=== PATIENT | female | born 1985 | race Asian ===

== ENCOUNTER → 2021-02-05 12:51 | Outpatient (CLI) | payer OTHER, SELFPAY | PROVIDERS: PCP Obstetrics & Gynecology; Referring Provider Obstetrics & Gynecology; Visit Provider Obstetrics & Gynecology | DX: O09.521 Supervision of elderly multigravida, first trimester (principal) | CPT/HCPCS: 36415; 81420 ==

== ENCOUNTER → 2021-02-21 13:54 | Outpatient (CLI) | payer OTHER, SELFPAY ==
[2021-02-21 16:17] LABS: Add Manual Diff / Slide Review NO; Basophils Absolute Auto 0 /uL (0-100); Basophils Percent Auto 0.1 % (0-2); Eosinophils Absolute Auto 0 /uL (0-450); Eosinophils Percent Auto 0.1 % (2-4); Hematocrit 36.4 % (36-46); Hemoglobin 12.3 g/dL (12.0-16.0); Lymphocytes Absolute Auto 1100 /uL (1100-4500); Lymphocytes Percent Auto 13.7 % (25-40); Mean Corpuscular HGB Conc 33.9 % (30-36); Mean Corpuscular Hemoglobin 30.6 PG (26-34); Mean Corpuscular Volume 90.5 fL (80-100); Monocytes Absolute Auto 300 /uL (0-900); Monocytes Percent Auto 3.2 % (3-14); Neutrophils Absolute Auto 6600 /uL (1500-7000); Neutrophils Percent Auto 82.9 % (50-75); Platelet Count 286 X10^3/uL (150-400); Red Blood Cell Count 4.03 X10^6/uL (4.0-5.2); Red Cell Distribution Width 13.3 % (11.6-14.8)
[2021-02-21 17:33] LABS: Appearance Urine UA CLOUDY; Bilirubin Urine UA NEGATIVE (NEGATIVE); Color Urine UA YELLOW; Glucose Urine UA TRACE g/dL (Negative); Ketones Urine UA NEGATIVE (NEGATIVE); Leukocyte Esterase Urine UA NEGATIVE (NEGATIVE); Nitrite Urine UA NEGATIVE (Negative); Occult Blood Urine UA NEGATIVE (Negative); Protein Urine UA TRACE (Negative); Specific Gravity Urine UA 1.025 (1.000-1.035); Urobilinogen Urine UA 0.2 E.U./dL (0.2)
[2021-02-22 10:29] LABS: RPR Screen Non Reactive (Non Reactive); Varicella IgG Antibody 2243 index (Immune >165)
[2021-02-22 16:24] LABS: Hepatitis B Surface Antigen NEGATIVE s/c (NEGATIVE)
[2021-02-22 16:43] LABS: HIV 1 & 2 Ab/Ag 4th Gen Combo NEGATIVE (NEGATIVE); Hep C Virus Ab w/Reflex Quant NEGATIVE s/c (NEGATIVE)
[2021-02-24 20:41] LABS: AFP Value 36.1 ng/mL (.); Gest Age on Col Date 16.4 weeks (.); Insulin Dep Diabetes No (.); OSBR Risk 1IN 10000 (.); Results Report (.); Test Results *Screen Negative* (.)
== END ==
PROVIDERS: Referring Provider Obstetrics & Gynecology; Visit Provider Obstetrics & Gynecology
DX: Z34.82 Encounter for supervision of other normal pregnancy, second trimester (principal); Z3A.16 16 weeks gestation of pregnancy
CPT/HCPCS: 36415; 80055; 81003; 82105; 86787; 86803; 86850; 86900; 86901; 87389

== ENCOUNTER → 2021-03-21 11:53 | Outpatient (CLI) | payer OTHER, SELFPAY ==
--- NOTE | 2021-03-21 11:54 | DI.US.S_ITS ---
PROCEDURE: US OB >= 14 WEEKS FETUS INDICATIONS: ANATOMY OUTSIDE/PRIOR DATING DATA: Last menstrual period (LMP): 10/29/2020. LMP-based estimated date of delivery (NEV[place]): 08/05/2021. First dating scan (date and location): 03/21/2021. Estimated date of delivery ([place]) from first dating scan: 08/10/2021. The calculations are made using the ultrasound NEVILLE of 08/10/2021. TECHNIQUE: Real-time scanning was performed of the fetus, with image documentation and biometric measurements. Endovaginal scanning: Not performed COMPARISON: [facility], , OB <= 14 WEEKS FETUS, 01/24/2021, 12:12. FINDINGS: General: A single living intrauterine gestation is present. Presentation: Breech. Placenta: Placental position is posterior , without previa. Lower placental edge 2 cm or less from internal cervical os qualifies as low lying placenta. Amniotic fluid index: 14.3 cm. Single deepest vertical pocket is 4.1 cm. heart rate: 141 beats per minute. Maternal cervical canal: 3.2 cm long. Normal lower limit is 2.5 cm. Report any funneling of internal cervical os: % of canal length, shape (U or V), width or any U-shaped funneling. biometrics: Biparietal diameter: 19 weeks 2 days Head circumference: 19 weeks 3 days Abdominal circumference: 19 weeks 4 days Femur length: 18 weeks 6 days Clinically estimated gestational age: 18 weeks 2 days Composite gestational age from present scan: 19 weeks 2 days Estimated weight and percentile: 284 g at the 94th percentile. Anatomic survey: Neuro: Ventricles are non-dilated at less than 10 mm. Cisterna magna is normal at 3-11 mm. Cerebellum is normal in size and morphology. Nuchal skin fold: Normal at less than 6 mm between 14-21 weeks gestational age. Face: Nose and lips, facial profile are normal. Spine: No evidence for spina bifida. Heart: 4-chambered heart is present, with normal ventricular outflow tracts. Diaphragm: Diaphragm is intact. Stomach: Left-sided stomach is present. Kidneys: No hydronephrosis. Normal is less than 5 mm in 2nd trimester, less than 7 mm in 3rd trimester. Cord: 3-vessel cord has orthotopic insertion. Bladder: Normal in size. Extremities: All 4 extremities identified. IMPRESSION: 1. A single living intrauterine gestation interval growth at the upper limits of normal. weight is estimated at the 94th percentile. 2. Normal anatomic survey. We strive to produce accurate, complete, and clear reports of imaging services. To assist us in improving patient care, this report was composed using standard report templates and voice recognition software. Therefore, it may contain abnormal punctuation, insertions and/or omissions. Occasional wrong-word or sound-alike substitutions may occur. Though we review the report and make efforts to correct it, we do recommend that the report be read carefully in proper context to recognize any text inaccuracies. Dictated by: Sahil De Souza M.D. on 03/21/2021 at 17:15 Approved by: Sahil De Souza M.D. on 03/21/2021 at 17:19
== END ==
PROVIDERS: Referring Provider Obstetrics & Gynecology; Visit Provider Obstetrics & Gynecology
DX: Z34.82 Encounter for supervision of other normal pregnancy, second trimester (principal); Z3A.18 18 weeks gestation of pregnancy
CPT/HCPCS: 76811

== ENCOUNTER → 2021-04-18 14:47 | Outpatient (CLI) | payer OTHER, SELFPAY ==
[2021-04-18 20:14] LABS: Urine N gonorrhoeae NOT DETECTED
[2021-04-18 20:16] LABS: Urine Chlamydia NOT DETECTED
== END ==
PROVIDERS: Visit Provider Obstetrics & Gynecology
DX: Z34.82 Encounter for supervision of other normal pregnancy, second trimester (principal); Z3A.24 24 weeks gestation of pregnancy
CPT/HCPCS: 87491; 87591

== ENCOUNTER → 2021-04-25 11:57 | Outpatient (CLI) | payer OTHER, SELFPAY ==
[2021-04-25 14:29] LABS: Hematocrit 30.8 % (36-46); Hemoglobin 10.6 g/dL (12.0-16.0)
[2021-04-25 15:06] LABS: GTT (PREG) 1 Hour PP 50gm Dose 153 mg/dL (76-139)
== END ==
PROVIDERS: Referring Provider Obstetrics & Gynecology; Visit Provider Obstetrics & Gynecology
DX: Z34.82 Encounter for supervision of other normal pregnancy, second trimester (principal); Z3A.25 25 weeks gestation of pregnancy
CPT/HCPCS: 36415; 82950; 85014; 85018

== ENCOUNTER → 2021-05-02 10:04 | Outpatient (CLI) | payer OTHER, SELFPAY ==
[2021-05-02 12:41] LABS: Glucose Fasting Gestational 82 mg/dL (76-95)
[2021-05-02 13:47] LABS: Glucose Tol Interp,Gestational INTERPRETATION
[2021-05-02 14:50] LABS: Glucose 1 Hour Gest 148 mg/dL (76-180)
[2021-05-02 14:50] LABS: Glucose 2 Hour Gest 139 mg/dL (76-155)
[2021-05-02 14:52] LABS: Glucose 3 Hour Gest 136 mg/dL (76-140)
== END ==
PROVIDERS: Referring Provider Obstetrics & Gynecology; Visit Provider Obstetrics & Gynecology
DX: O99.810 Abnormal glucose complicating pregnancy (principal)
CPT/HCPCS: 36415; 82951; 82952

== ENCOUNTER → 2021-06-05 15:56 | Outpatient (CLI) | payer OTHER, SELFPAY | PROVIDERS: Visit Provider Obstetrics & Gynecology | DX: Z34.83 Encounter for supervision of other normal pregnancy, third trimester (principal); Z3A.31 31 weeks gestation of pregnancy | CPT/HCPCS: 87086 ==

== ENCOUNTER → 2021-07-19 17:02 | Outpatient (CLI) | payer OTHER, SELFPAY ==
[2021-07-20 16:12] LABS: Strep Grp B PCR NEG for Grp B Strep
== END ==
PROVIDERS: PCP Student in an Organized Health Care Education/Training Program; Visit Provider Obstetrics & Gynecology
DX: Z34.83 Encounter for supervision of other normal pregnancy, third trimester (principal); Z3A.37 37 weeks gestation of pregnancy
CPT/HCPCS: 87653

== ENCOUNTER 2021-07-19 17:26 | Outpatient (CLI) | payer OTHER, SELFPAY | END 2021-07-19 19:45 | disposition home or self-care (01) | LOC: OB 07-25 13:55 | PROVIDERS: PCP Student in an Organized Health Care Education/Training Program; Referring Provider Obstetrics & Gynecology; Visit Provider Obstetrics & Gynecology | DX: O36.5930 Maternal care for other known or suspected poor fetal growth, third trimester, not applicable or unspecified (principal); Z3A.37 37 weeks gestation of pregnancy; Z34.83 Encounter for supervision of other normal pregnancy, third trimester | CPT/HCPCS: 59025; 87653; G0378; G0379 ==

== ENCOUNTER 2021-07-23 07:06 | Inpatient (IN) | payer OTHER, SELFPAY ==
[2021-07-23 08:07] LABS: Add Manual Diff / Slide Review NO; Basophils Absolute Auto 0 /uL (0-100); Basophils Percent Auto 0.4 % (0-2); Eosinophils Absolute Auto 100 /uL (0-450); Eosinophils Percent Auto 1.3 % (2-4); Hematocrit 32.4 % (36-46); Hemoglobin 11.3 g/dL (12.0-16.0); Lymphocytes Absolute Auto 1400 /uL (1100-4500); Lymphocytes Percent Auto 19.8 % (25-40); Mean Corpuscular HGB Conc 34.8 % (30-36); Mean Corpuscular Hemoglobin 32.3 PG (26-34); Mean Corpuscular Volume 92.6 fL (80-100); Monocytes Absolute Auto 500 /uL (0-900); Monocytes Percent Auto 7.1 % (3-14); Neutrophils Absolute Auto 5000 /uL (1500-7000); Neutrophils Percent Auto 71.4 % (50-75); Platelet Count 230 X10^3/uL (150-400); Red Cell Distribution Width 13.5 % (11.6-14.8)
[2021-07-23] MEDS: LACTATED RINGERS 1,000 ML 100 ML IV ×2 (08:21→13:54)
[2021-07-23] MEDS: OXYTOCIN PREMIX 30 UNIT/500 ML PLAST..BAG IV (08:21)
[2021-07-23 08:53] VITALS: BP 118/78
[2021-07-23 09:25] LABS: COVID19 -Nasal RAPID Negative (Negative)
--- NOTE | 2021-07-23 13:44 | PM.OBHP.IH.1 ---
OB HPI Date/Time Date of admission: 07/23/21 Date Patient Seen: 07/23/21 Time Patient Seen: 13:44 History of Present Condition Chief complaint: INDUCTION NEVILLE Calculator Estimated Delivery Date Method Current WG Current Estimate 08/05/21 LMP (Certain) 38w 1d Estimated Gestational Age (weeks): 38+1 : 2 Para: 1 care: good care, initiated at week # (2), number of visits (9) and pounds weight gain (20) Dating criteria OB: LMP confirmed by 1st trimester US Ultrasounds: normal 1st trimester US and normal mid trimester US Obstetrical complications: growth restriction Medical complications OB: none Indications Indication for induction OB: oligohydramnios and intra-uterine growth restriction Preadmission Labs Last OB Lab Results: Blood Type O Positive 07/23/21 07:45 07/23/21 Antibody Screen Negative 07/23/21 07:45 07/23/21 Hematocrit 32.4 % (36-46) L 07/23/21 07:45 07/23/21 Hemoglobin 11.3 g/dL (12.0-16.0) L 07/23/21 07:45 07/23/21 Hepatitis B Surface Antigen Negative s/c (NEGATIVE) 02/21/21 14:04 02/21/21 Hepatitis C Antibody Negative s/c (NEGATIVE) 02/21/21 14:04 02/21/21 Rubella Antibody 202.0 IU/mL (>15) 02/21/21 14:04 02/21/21 Varicella-Zoster IgG Antibody 2243 index (Immune >165) 02/21/21 14:04 02/21/21 Glucose 1 Hour 153 mg/dL (76-139) H 04/25/21 13:06 04/25/21 Group B Streptococcus (PCR) Neg for grp b strep 07/19/21 17:02 07/19/21 Glucose Tolerance Testing: Fasting (82), 1 hr (148), 2 hr (139) and 3 hr (136) -: Chlamydia screen: negative, Gonorrhea screen: negative and Urine: negative Genetic Screens: Cell-free DNA: Normal and Alpha-fetoprotein: Normal External Labs -: Urine: negative Prior (ies) Past Pregnancies Del. Date GA/Weeks Labor Lgth Wt Sex Route Outcome Anesthesia Place Delv Breastfeed Preg Comp Name 10/14/18 40 10 5 lb 13 oz Female vaginal live - full term epidural [place] 6 months oligohydramnios [place] Delivery Date: 10/14/18 Last Updated by: Michela Martínez R.N. Augmented with Pitocin after 14 hours at home with mild contractions at term. Anemia during Evaluation Evaluation Baseline heart rate: 125 Variability: Moderate (11-25) monitor accelerations: Present Monitor Decelerations: Variable Contraction Frequency (minutes): 2 Uterine Contraction Intensity: Moderate Status: Category l Dilation (cm): 5 Effacement (%): 80 station: 0 Position of cervix: mid Consistency: soft [facility] Medical History (Updated 07/22/21 @ 11:57 by Tameka Donald MD) Hyperlipidemia Low vitamin D level Surgical History (Updated 01/22/21 @ 20:59 by Nidia Raya) Vaginal delivery (~09/2018) Family History (Updated 01/22/21 @ 21:01 by Nidia Raya) Mother Diabetes mellitus Hyperlipidemia Grandfather Diabetes mellitus Hypertension Hyperlipidemia Stroke Grandmother Pneumonia Grandfather Cancer Grandmother Hypertension Social History marital status: number of children: 1 household members: spouse, family (Mother) and children caregiver/support person: Yes housing: house pets and animals: Yes (Dog) education level: college occupational status: unemployed and previously employed current occupational exposures/hazards: No 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 seatbelt use: always water heater temp set < 120 deg: No working smoke detector in home: Yes fire extinguisher in home: Yes carbon monox detector in home: Yes firearms in home: No do you feel safe at home: Yes Smoking Status: Current some day smoker Smokeless tobacco user: other (E cig.) alcohol intake: former (Not during now. had 2 drinks early in ) substance use type: does not use during the past year weight has: remained stable well-balanced diet: daily or most days daily servings fruits/ve-4 caffeine: Yes (Cut caffeine to 1-2 week, ) Type(s) of exercise: none Meds Home Medications and Allergies Home Medications Medication Instructions Recorded Confirmed Type vitamin with calcium 1 tab PO DAILY 07/23/21 07/23/21 History no.72-iron 27 mg-folic acid 1 mg tablet ( Plus (calcium carbonate)) Allergies Allergy/AdvReac Type Severity Reaction Status Date / Time Latex, Natural Rubber Allergy Mild Rash Verified 07/23/21 08:56 OB Exam Narrative Exam Narrative: Generally: Patient tolerating contractions well Lungs: CTA B CV: RRR Fundal height: 34 cm Estimated weight: 5 lb Extremities: No edema Objective Labs Result Diagrams: 07/23/21 07:45 Labs: Laboratory Results - last 24 hr 07/23/21 07/23/21 07/23/21 07:40 07:45 07:45 WBC 7.0 RBC 3.50 L Hgb 11.3 L Hct 32.4 L MCV 92.6 MCH 32.3 MCHC 34.8 RDW 13.5 Plt Count 230 Neut % (Auto) 71.4 Lymph % (Auto) 19.8 L Christian % (Auto) 7.1 Eos % (Auto) 1.3 L Baso % (Auto) 0.4 Neut # (Auto) 5000 Lymph # (Auto) 1400 Christian # (Auto) 500 Eos # (Auto) 100 Baso # (Auto) 0 SARS-CoV-2 (PCR) Negative Blood Type O Positive Antibody Screen Negative Assessment and Plan Assessment and Plan Assessment and Plan narrative: Assessment: 35-year-old 2 para 1 at 38-,1/7 weeks gestation with growth at the eighth percentile and borderline oligohydramnios for induction of labor GBS negative Plan: Artificial rupture membranes performed with small amount of clear amniotic fluid Time Spent with Patient Total time spent with greater than 50% in coordination of care (as documented) at patient's floor/unit and/or counseling patient:: 15-24 minutes
[2021-07-23] MEDS: fentaNYL 100 MCG/2 ML INJ (14:15)
[2021-07-23] MEDS: FENT 2MCG/ML BUPIV 0.125% EPI 200 MCG/100 ML PLAST..BAG 12 MCG EPIDURAL (14:24)
--- NOTE | 2021-07-23 15:16 | PM.AN.REGBLK ---
Regional Block Pre-procedure Procedure: Continuous Lumbar Epidural for L&D Attending OB provider: Tameka Donald PMH/ROS narrative: with previous epidural, no issues. Hx: No personal or family history of anesthesia problems. PSH/Anesthesia history narrative: epidural previously, uncomplicated , healthy Exam narrative: MP2, RRR, CTAB ASA Class: II Labs: Hct 32.4 % (36-46) L 07/23/21 07:45 Plt Count 230 X10^3/uL (150-400) 07/23/21 07:45 Medications: Current Medications Generic Name Dose Route Start Last Admin Trade Name Freq PRN Reason Stop Dose Admin Calcium Carbonate 1,000 mg 07/23/21 07:13 Calcium Carbonate 500 Mg Tab PO Q2HR PRN Dyspepsia Carboprost Tromethamine 250 mcg 07/23/21 07:13 Carboprost 250 Mcg/Ml Ampul IM Q90M PRN Bleeding Fentanyl 50 mcg 07/23/21 07:13 Fentanyl 100 Mcg/2 Ml Inj IV Q1H PRN Pain, Moderate (4-6) Oxytocin/Lactated Ringer's 30 unit in 500 mls @ 1 mls/hr 07/23/21 07:15 07/23/21 08:21 Oxytocin Premix IV 1 milliunit/min TITRATE DANIELLE 1 mls/hr Administration Protocol 1 MILLIUNIT/MIN Tranexamic Acid 1,000 mg/ 100 mls @ 200 mls/hr 07/23/21 07:13 Sodium Chloride IV NOW PRN Bleeding Lactated Ringer's 1,000 mls @ 100 mls/hr 07/23/21 07:15 07/23/21 13:54 Lactated Ringers IV 100 mls/hr CONT DANIELLE Administration Oxytocin/Lactated Ringer's 30 unit in 500 mls @ 200 mls/hr 07/23/21 07:13 Oxytocin Premix IV CONT PRN Bleeding Protocol Lactated Ringer's 1,000 mls @ 100 mls/hr 07/23/21 15:15 Lactated Ringers IV CONT DANIELLE FENT 2MCG/ML BUPIV 0.125% EPI 200 mcg in 100 mls @ 12 mls/hr 07/23/21 15:15 Fentanyl/Bupiv/Ns 2mcg/Ml - 0.125% EPIDURAL CONT DANIELLE Methylergonovine Maleate 0.2 mg 07/23/21 07:13 Methylergonovine 0.2 Mg/Ml Vial IM NOW PRN Bleeding Methylergonovine Maleate 0.2 mg 07/23/21 07:13 Methylergonovine 0.2 Mg Tablet PO Q6HR PRN Heavy Bleeding Metoclopramide HCl 10 mg 07/23/21 07:13 Metoclopramide 10 Mg/2 Ml Inj IV NOW PRN Nausea And Vomiting Misoprostol 1,000 mcg 07/23/21 07:13 Misoprostol 200 Mcg Tablet AL NOW PRN Bleeding Misoprostol 400 mcg 07/23/21 07:13 Misoprostol 200 Mcg Tablet SL NOW PRN Bleeding Misoprostol 800 mcg 07/23/21 07:13 Misoprostol 200 Mcg Tablet AL NOW PRN Bleeding Naloxone HCl 0.2 mg 07/23/21 07:13 Naloxone 0.4 Mg/Ml Vial IV Q2MIN PRN Opiate Reversal Ondansetron HCl 4 mg 07/23/21 07:13 Ondansetron 4 Mg/2 Ml Inj IV Q4HR PRN Nausea And Vomiting Oxytocin 10 unit 07/23/21 07:13 Oxytocin 10 Unit/Ml Vial IM NOW PRN Bleeding Allergies: Allergies Allergy/AdvReac Type Severity Reaction Status Date / Time Latex, Natural Rubber Allergy Mild Rash Verified 07/23/21 08:56 Procedure Insertion date: 07/23/21 Insertion time: 14:13 Prep/Local: betadine x3 (chloroprep) and 1% lidocaine Interspace: L3-4 Patient position: sitting Needle: 18 gauge Hustead (with 27G pencil point needle-through needle for IT dose) Loss of resistance with: saline (with air bubble) KEI at (cm): 5 Catheter placed at SKIN (cm): 10 Catheter in SPACE (cm): 5 Insertion: Yes CSF, No Blood, No Paresthesia with insertion, No Paresthesia with injection and No Test dose reaction Initial Medications TEST DOSE time: 14:14 TEST DOSE: 1.5% lidocaine with epinephrine 1:200k (mL): 5 (3mL initial test dose, 2mL as part of first bolus) BOLUS DOSE time: 14:15 BOLUS DOSE (mL): 2 BOLUS DOSE med: other (10mcg fentanyl intrathecally, 90mcg fentanyl via epidural catheter) Infusion INFUSION: 0.0625% bupivacaine and with fentanyl 2 mcg/mL Initial rate (mL/hr): 12 (with bolus of 5mL Q15min lockout) Post-procedure Anesthesia time START: 13:59 Anesthesia time END: 18:48
--- NOTE | 2021-07-23 17:41 | PM.OBPNLAB ---
Date/Time Date Patient Seen: 07/23/21 Time Patient Seen: 16:00 Pain Control Pain control: epidural Pelvic Exam Dilation (cm): 5 Effacement (%): 80 station: 0 Amniotic membrane status: Ruptured Contractions Contractions on admission: none Monitor mode: External Pitocin rate (mU/min): 8 Contraction frequency (min): 2 Contraction duration (min): 1 Contraction pattern: Regular Contraction intensity: Strong/Firm Status status: Category l Heart Rate Baseline: 125 Monitor Accelerations: Present Monitor Decelerations: Absent Monitor Variability: Moderate Assessment and Plan Assessment: induction ongoing Plan: continuous present management
--- NOTE | 2021-07-23 19:17 | PM.OBPRVD ---
Events: Labor Induction, Low Fluid Volume in Sac and Other (Growth restriction) Labor & Delivery Delivery date: 07/23/21 Cervical ripening method: none Induction method: per pitocin protocol Delivery augmentation: rupture of membranes Delivery monitor: external FHT and external uterine Route of delivery: Episiotomy description: None L&D Laceration Description: Periurethral - 1st Degree and Perineal - 1st Degree Delivery repair: vicryl and chromic Estimated blood loss (mL): 150 Anesthesia Type: Epidural Complications: None Narrative: Patient complete and pushed with 2 contractions. At 6:48 p.m., a live female delivered spontaneously in the SYD presentation with right arm and hand compound. No nuchal cord. The remainder of the body delivered without difficulty and was placed on mom's abdomen. When the cord stopped pulsing, the cord was double clamped and cut. Pitocin was given in the IV fluids. Cord bloods were obtained. The placenta delivered intact with a three-vessel cord at 6:54 p.m. The fundus was massaged to firm. A periurethral tear was repaired with 4-0 chromic in the usual fashion. First-degree perineal laceration was repaired in the usual fashion. Hemostasis was achieved. A catheter was placed into the bladder to empty the bladder due to the proximity of the periurethral tear. 8 at 1 minute and 9 at 5 minutes. Estimated blood loss 150 cc. Apgars 8 at 1 minute and 9 at 5 minutes. . Epidural analgesia. Mom and stable to recovery. Baby 1: gender: Female Presentation: vertex Position: Right Occiput Anterior Placenta delivery description: Spontaneous Cord Vessel Description: 3 Vessels and Clamped/Cut score (1 min): 8 score (5 min): 9 weight: 5 lb 5.6 oz Plan for aftercare: Routine care
[2021-07-24] MEDS: IBUPROFEN 600 MG TABLET PO ×4 (00:18→18:17)
[2021-07-24] MEDS: ACETAMINOPHEN 325 MG TABLET 650 MG PO ×4 (00:18→18:18)
[2021-07-24 05:50] LABS: Hematocrit 26.3 % (36-46); Hemoglobin 9.2 g/dL (12.0-16.0)
[2021-07-24] MEDS: DOCUSATE 100 MG CAPSULE PO (08:05)
[2021-07-24] MEDS: PRENATAL VIT,CALC/IRON/FOLIC 1 TABLET 1 TAB PO (09:05)
[2021-07-24] MEDS: LANOLIN OINT 7 GM 1 APPLIC TOP (12:03)
--- NOTE | 2021-07-24 12:57 | PM.OBPN.1 ---
Subjective - OB Subjective Patient comments: no complaints [place] baby status: doing well and nursing well [place] feeding status: exclusively breast feeding Date Patient Seen: 07/24/21 Time Patient Seen: 12:57 Interval history: day # 1 status post spontaneous vaginal delivery after induction due to growth restriction. Exam Narrative Exam Narrative: Generally: Patient is sitting up in bed, nursing , no acute distress Fundus: Firm at U-3 Extremities: Trace edema, negative Homans Objective Labs Result Diagrams: 07/24/21 05:40 Labs: Laboratory Results - last 24 hr 07/24/21 05:40 Hgb 9.2 L Hct 26.3 L Assessment & Plan Plan day: 1 plan OB: routine care Comments: Anticipate discharge tomorrow Time Spent With Patient Time: Total time spent is greater than 50% in coordination of care (as documented) at patient's floor/unit and/or counseling patient: Time with patient: 15-24 minutes
[2021-07-25] MEDS: ACETAMINOPHEN 325 MG TABLET 650 MG PO ×3 (00:18→12:49)
[2021-07-25] MEDS: IBUPROFEN 600 MG TABLET PO ×3 (00:18→12:49)
[2021-07-25 06:10] VITALS: TEMP 36
--- NOTE | 2021-08-01 14:47 | P.DS_ITS ---
Discharge Providers Provider Date of admission: 07/23/21 07:06 Discharge Date: 07/25/21 Primary care physician: Keira Cardona MD Consults: 07/24/21 19:26 Consult to Inspector [employer] Routine Comment: Discharge provider: Tameka Donald MD Summary Hospital Course Date Patient Seen: 07/25/21 Time Patient Seen: 07:30 Diagnoses: 38+2 weeks gestation growth restriction Induction of labor with Pitocin Epidural analgesia Spontaneous vaginal delivery Hospital Course: Patient is a 35 year old who presented on 07/24/21 for induction of labor at 38+2 wks gestation due to growth restriction. She was started on Pitocin. AROM was performed. She received an epidural for pain management. She had a without complication. Her course was unremarkable Peripartum Data Delivery Method: Natural Vaginal Laceration Description: Periurethral - 1st Degree and Perineal - 1st Degree Episiotomy description: None Procedures: Induction of labor with Pitocin Artificial rupture of membranes Spontaneous vaginal delivery 1st degree periurethral and perineal laceration repair complications: none 1: Gender: Female Disposition of : home Status at Discharge Cognitive/behavioral status at discharge: oriented Functional status at discharge: independent ambulation Overall status at discharge: patient is progressing back to baseline Time Spent with Patient Time attestation: Total time spent providing and/or coordinating discharge services: Time spent: Less than 30 minutes Objective Labs Result Diagrams: 07/24/21 05:40 Exam Narrative Exam Narrative: Generally: No acute distress Fundus: Firm U-2 Ext: No edema, neg Severo's Discharge Plan Discharge Plan Patient Disposition: Home Provider Discharge Comment: Call with fever, chills, or bleeding vaginally more than a pad in an hour Ibuprofen 600 mg every 6 hours as needed for cramping Discharge orders & Medications Prescriptions: Continued Plus (calcium carb) 27 mg iron- 1 mg tablet 1 tab PO DAILY 0RF Follow up/Referrals: Tameka Donald MD [Physician] - 09/04/21 9:30 am Diet/Activity/Treatments Diet: Regular Activity: Nothing in the vagina for 6 weeks Skin/Wound/Dressing Care Report to your healthcare provider any signs of infection, such as:: chills, fever, increased pain and unusual drainage Visit Report/Discharge Packet Instructions: DI for Labor and Delivery, Vaginal Discharge Data Primary Care Provider: Keira Cardona
--- NOTE | 2021-08-02 15:18 | P.DS_ITS ---
Discharge Providers Provider Date of admission: 07/23/21 07:06 Discharge Date: 07/25/21 Primary care physician: Keira Cardona MD Consults: 07/24/21 19:26 Consult to Trim Installer Routine Comment: Discharge provider: Tameka Donald MD Summary Hospital Course Date Patient Seen: 07/25/21 Time Patient Seen: 07:30 Diagnoses: 38-2/7 weeks gestation growth restriction Induction of labor with Pitocin Spontaneous vaginal delivery Artificial rupture of membrane Epidural analgesia First-degree perineal/periurethral laceration Hospital Course: Patient is a 35 year old who presented on 07/24/21 for induction of labor at 38+2 wks gestation due to growth restriction. She was started on Pitocin. AROM was performed. She received an epidural for pain management. She had a without complication. Her course was unremarkable. She was discharged home on July 25, 2021. Peripartum Data Delivery Method: Natural Vaginal Laceration Description: Periurethral - 1st Degree and Perineal - 1st Degree Episiotomy description: None Procedures: Pitocin induction of labor Artificial rupture of membranes Epidural analgesia Spontaneous vaginal delivery First-degree periurethral/perineal laceration repair 1: Gender: Female Disposition of : home Status at Discharge Cognitive/behavioral status at discharge: oriented Functional status at discharge: independent ambulation Overall status at discharge: patient is progressing back to baseline Time Spent with Patient Time attestation: Total time spent providing and/or coordinating discharge services: Time spent: Less than 30 minutes Objective Labs Result Diagrams: 07/24/21 05:40 Exam Narrative Exam Narrative: Generally: Patient is sitting up in bed, no acute distress Fundus: Firm at U -2 Extremities: Negative Homans, trace edema Discharge Plan Discharge Plan Patient Disposition: Home Provider Discharge Comment: Call with fever, chills, or bleeding vaginally more than a pad in an hour Ibuprofen 600 mg every 6 hours as needed for cramping Discharge orders & Medications Prescriptions: Continued Plus (calcium carb) 27 mg iron- 1 mg tablet 1 tab PO DAILY Follow up/Referrals: Tameka Donald MD [Physician] - 09/04/21 9:30 am Diet/Activity/Treatments Diet: Regular Activity: Nothing in the vagina for 6 weeks Skin/Wound/Dressing Care Report to your healthcare provider any signs of infection, such as:: chills, fever, increased pain and unusual drainage Visit Report/Discharge Packet Instructions: DI for Labor and Delivery, Vaginal Discharge Data Primary Care Provider: Keira Cardona
== END 2021-07-25 15:30 | disposition home or self-care (01) | DRG 806 ==
PROVIDERS: Admitting Provider Obstetrics & Gynecology; PCP Student in an Organized Health Care Education/Training Program; Referring Provider Obstetrics & Gynecology; Visit Provider Obstetrics & Gynecology
DX: O36.5930 Maternal care for other known or suspected poor fetal growth, third trimester, not applicable or unspecified (principal); O41.03X0 Oligohydramnios, third trimester, not applicable or unspecified; Z37.0 Single live birth; Z3A.38 38 weeks gestation of pregnancy; O71.82 Other specified trauma to perineum and vulva; O70.0 First degree perineal laceration during delivery; Z20.822 Contact with and (suspected) exposure to COVID-19
CPT/HCPCS: 01967; 36415; 59050; 59400; 85014; 85018; 85025; 86850; 86900; 86901; 87635; C9803; G0379; J2590; J3010

== ENCOUNTER → 2021-10-16 09:50 | Outpatient (CLI) | payer OTHER, SELFPAY ==
--- NOTE | 2021-10-16 09:51 | DI.US.S_ITS ---
ULTRASOUND OF RIGHT BREAST AND AXILLA: 10/16/2021 CLINICAL: Palpable right axilla lump. No prior exams were available for comparison. Color flow and real-time ultrasound of the right breast axilla were performed. Mendes scale images of the real-time examination were reviewed. There is a benign normal lymph node with a circumscribed margin in the right axilla. This normal lymph node displays fatty hilum. This correlates as palpated. IMPRESSION: BENIGN There is no sonographic evidence of malignancy. Small left axillary lymph node in the region of the palpable abnormality is benign. Patient is currently breast feeding. Exam findings were conveyed to the patient. Patient is advised to monitor for significant change. A screening mammogram is recommended at age 40 unless high risk. This exam was interpreted at Station ID: [id number]. Electronically Signed By: Leo Ortiz M.D. slc/:10/16/2021 10:24:50 letter sent: Normal Exam Ultrasound BI-RADS: 2 Benign
== END ==
PROVIDERS: Referring Provider Specialist; Visit Provider Specialist
DX: R22.31 Localized swelling, mass and lump, right upper limb (principal)
CPT/HCPCS: 76882

== ENCOUNTER 2021-12-14 11:46 | Emergency (ER) | payer OTHER, SELFPAY ==
[2021-12-14 12:20] VITALS: BP 103/66; PULSE 104; RESP 16; TEMP 36.7; O2SAT 98; BMI 21.7
--- NOTE | 2021-12-14 14:42 | ED.NAVMDI ---
HPI - Nausea/Vomiting/Diarrhea <Nabil Alvarez PA-C - Last Filed: 12/14/21 19:57> General Chief complaint: Nausea/Vomiting/Diarrhea Stated complaint: d/v daughter has noravirus x2 days c-diff Time Seen by Provider: 12/14/21 13:47 Source: patient Mode of arrival: Ambulatory History of Present Illness HPI Narrative: Patient is 35-year-old female who presents to the emergency room today with complaint of vomiting, diarrhea and fatigue that started last night. Patient also admits to having to syncopal episodes yesterday around 3:00 p.m.. States that she went to the bathroom to have a bowel movement and vomited instead. States that after that, she passed out in the bathroom and then passed out again outside of the bathroom. States that her condition progressed to the diarrhea associated with the vomiting last night. Denies any blood in the vomit or stool. Also denies ever having a syncopal episode in the past. Denies any cardiac related concerns. Does admit to having a 3-year-old child who was diagnosed with C difficile 2 days ago. Related Data Home Medications Medication Instructions Recorded Confirmed vitamin with calcium 1 tab PO DAILY 07/23/21 10/09/21 no.72-iron 27 mg-folic acid 1 mg tablet ( Plus (calcium carbonate)) Previous Rx's Medication Instructions Recorded vancomycin 125 mg capsule 125 mg PO QID #40 caps 12/14/21 vancomycin 125 mg capsule 125 mg PO QID #40 caps 12/14/21 (Vancocin) Allergies Allergy/AdvReac Type Severity Reaction Status Date / Time Latex, Natural Rubber Allergy Mild Rash Verified 10/09/21 08:39 Review of Systems <Nabil Alvarez PA-C - Last Filed: 12/14/21 19:57> Review of Systems Narrative: R.O.S.: General: No fever, chills or fatigue. Cardiovascular: No chest pain or palpitations Respiratory: No S.O.B. HEENT: No congestion, ear pain, rhinorrhea, sore throat or tinnitus Gastrointestinal: Nausea and vomiting : No urinary concerns Skin: No rash or associated abnormalities Musculoskeletal: No pain in muscles or joints, no limitation of range of motion, no paresthesia or numbness. ?? Neurological: Syncopal episode yesterday. Awake, alert and in not apparent distress. No Headaches, changes in vision or other related neurological concerns. Patient History <Nabil Alvarez PA-C - Last Filed: 12/14/21 19:57> Medical History (Updated 12/14/21 @ 15:52 by Nabil Alvarez PA-C) Hyperlipidemia Low vitamin D level Surgical History (Updated 01/22/21 @ 20:59 by Nidia Raya) Vaginal delivery (~09/2018) Family History (Updated 01/22/21 @ 21:01 by Nidia Raya) Mother Diabetes mellitus Hyperlipidemia Grandfather Diabetes mellitus Hypertension Hyperlipidemia Stroke Grandmother Pneumonia Grandfather Cancer Grandmother Hypertension Social History marital status: number of children: 1 household members: spouse, family (Mother) and children caregiver/support person: Yes housing: house pets and animals: Yes (Dog) education level: college occupational status: unemployed and previously employed current occupational exposures/hazards: No 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 seatbelt use: always water heater temp set < 120 deg: No working smoke detector in home: Yes fire extinguisher in home: Yes carbon monox detector in home: Yes firearms in home: No do you feel safe at home: Yes Smoking Status: Former smoker Smokeless tobacco user: other (E cig.) alcohol intake: former (Not during now. had 2 drinks early in ) substance use type: does not use during the past year weight has: remained stable well-balanced diet: daily or most days daily servings fruits/ve-4 caffeine: Yes (Cut caffeine to 1-2 week, ) Type(s) of exercise: none Smoking Status: Former smoker Substance Use Type: does not use Exam <Nabil Alvarez PA-C - Last Filed: 12/14/21 19:57> Narrative Exam Narrative: Physical Exam: ? General: normal appearance, well developed, well nourished, alert, and awake. Not in acute distress. ? Head: Normocephalic, no lesions. Chest: Lungs CTAB, no rales, rhonchi or wheezes. ?? Heart: RRR, no murmurs, rubs or gallops. Eyes: PERRLA, EOM's full, conjunctivae clear. ? Neuro: Physiological, no localizing findings, CN3-12 intact. ?? Extremities: Warm, well perfused, FROM, no deformities, no edema. ?? Skin: Normal, no rashes, no lesions noted. ?? PSYCHIATRIC: The mood is good, no blunted affect. Speech is clear. Thought process is linear, thought content is appropriate. The voice is without significant inflection. Gastrointestinal: Negative CVA tenderness; Soft; NT; ND; Pos BS with Neg. rebound tenderness. No scars or major deformities noted on Visual Inspection. Initial Vital Signs Initial Vital Signs: Vital Signs Temperature 98.1 F 12/14/21 12:20 Pulse Rate 104 H 12/14/21 12:20 Respiratory Rate 16 12/14/21 12:20 Blood Pressure 103/66 12/14/21 12:20 Pulse Oximetry 98 12/14/21 12:20 Oxygen Delivery Method 12/14/21 12:20 <Rut Conroy DO - Last Filed: 12/19/21 07:01> Initial Vital Signs Initial Vital Signs: Vital Signs Temperature 98.1 F 12/14/21 12:20 Pulse Rate 104 H 12/14/21 12:20 Respiratory Rate 16 12/14/21 12:20 Blood Pressure 103/66 12/14/21 12:20 Pulse Oximetry 98 12/14/21 12:20 Oxygen Delivery Method 12/14/21 12:20 Course <Nabil Alvarez PA-C - Last Filed: 12/14/21 19:57> Orders Ordered: Discontinued Medications Sodium Chloride (Normal Saline 0.9%) 1,000 mls @ 1,000 mls/hr IV BOLUS ONE Stop: 12/14/21 15:45 Last Infusion: 12/14/21 16:25 Dose: 0 mls/hr Documented By: Admin: 12/14/21 15:32 Dose: 1,000 mls/hr Documented By: KF Vital Signs Vital signs: Vital Signs - 8 hr 12/14/21 12:20 12/14/21 16:25 Temperature 98.1 F Pulse Rate 104 H 66 Respiratory Rate 16 16 Blood Pressure 103/66 103/54 L Pulse Oximetry 98 99 Oxygen Delivery Method Room Air Room Air <Rut Conroy DO - Last Filed: 12/19/21 07:01> Orders Ordered: Discontinued Medications Sodium Chloride (Normal Saline 0.9%) 1,000 mls @ 1,000 mls/hr IV BOLUS ONE Stop: 12/14/21 15:45 Last Infusion: 12/14/21 16:25 Dose: 0 mls/hr Documented By: Admin: 12/14/21 15:32 Dose: 1,000 mls/hr Documented By: TREV Vital Signs Vital signs: Vital Signs - 8 hr 12/14/21 12:20 12/14/21 16:25 Temperature 98.1 F Pulse Rate 104 H 66 Respiratory Rate 16 16 Blood Pressure 103/66 103/54 L Pulse Oximetry 98 99 Oxygen Delivery Method Room Air Room Air MDM - Nausea/Vomiting/Diarrhea <Nabil Alvarez PA-C - Last Filed: 12/14/21 19:57> Lab Data Result diagrams: 12/14/21 15:18 12/14/21 15:18 Labs: Lab Results 12/14/21 12/14/21 12/14/21 Range/Units 13:15 15:18 15:18 WBC 8.1 (4.5-11.0) X10^3/uL RBC 4.68 (4.0-5.2) X10^6/uL Hgb 13.9 (12.0-16.0) g/dL Hct 41.4 (36-46) % MCV 88.4 (80-100) fL MCH 29.6 (26-34) PG MCHC 33.5 (30-36) % RDW 13.0 (11.6-14.8) % Plt Count 217 (150-400) X10^3/uL Neut % (Auto) 90.3 H (50-75) % Lymph % (Auto) 5.2 L (25-40) % [place] % (Auto) 3.9 (3-14) % Eos % (Auto) 0.2 L (2-4) % Baso % (Auto) 0.4 (0-2) % Neut # (Auto) 7300 H (7376-6402) /uL Lymph # (Auto) 400 L (2988-5190) /uL [place] # (Auto) 300 (0-900) /uL Eos # (Auto) 0 (0-450) /uL Baso # (Auto) 0 (0-100) /uL Sodium 138 (137-145) mmol/L Potassium 3.6 (3.4-5.1) mmol/L Chloride 102 (98-107) mmol/L Carbon Dioxide 26 (22-32) mmol/L BUN 11 (7-17) mg/dL Creatinine 0.58 (0.52-1.04) mg/dL Estimated GFR > 60 (>60) mL/min BUN/Creatinine Ratio 19.0 (6-22) Glucose 103 H (70-100) mg/dL Calcium 8.6 (8.4-10.2) mg/dL Total Bilirubin 0.8 (0.2-1.3) mg/dL AST 22 (14-36) IU/L ALT 21 (<35) IU/L Alkaline Phosphatase 97 (38-126) U/L Total Protein 7.8 (6.3-8.2) g/dL Albumin 4.4 (3.5-5.0) g/dL Globulin 3.4 (1.7-4.1) g/dL Albumin/Globulin Ratio 1.3 (1.0-2.8) C. difficile Tox (PCR) Negative for c. diff (Negative) ECG Data Interpretation: EKG has normal sinus rhythm with no obvious left bundle-branch block ST segment elevation or Q-wave morphology. [facility] Narrative Medical decision making narrative: Presents emergency room with complaint of diarrhea and vomiting started last night. Also admits to a syncopal episode yesterday around 3:00 p.m.. Patient does not have a cardiac history and labs are done to rule out urinary tract infection cardiac etiology or other infectious etiologies that would have caused the syncopal episode. C difficile PCR test was also ordered and was negative. Given patient's symptoms and patient having a child with C diff we will be treating the patient for C diff with Vancomycin.. <Rut Conroy, DO - Last Filed: 12/19/21 07:01> Lab Data Labs: Lab Results 12/14/21 12/14/21 12/14/21 Range/Units 13:15 15:18 15:18 WBC 8.1 (4.5-11.0) X10^3/uL RBC 4.68 (4.0-5.2) X10^6/uL Hgb 13.9 (12.0-16.0) g/dL Hct 41.4 (36-46) % MCV 88.4 (80-100) fL MCH 29.6 (26-34) PG MCHC 33.5 (30-36) % RDW 13.0 (11.6-14.8) % Plt Count 217 (150-400) X10^3/uL Neut % (Auto) 90.3 H (50-75) % Lymph % (Auto) 5.2 L (25-40) % [place] % (Auto) 3.9 (3-14) % Eos % (Auto) 0.2 L (2-4) % Baso % (Auto) 0.4 (0-2) % Neut # (Auto) 7300 H (4945-9474) /uL Lymph # (Auto) 400 L (1598-0092) /uL [place] # (Auto) 300 (0-900) /uL Eos # (Auto) 0 (0-450) /uL Baso # (Auto) 0 (0-100) /uL Sodium 138 (137-145) mmol/L Potassium 3.6 (3.4-5.1) mmol/L Chloride 102 (98-107) mmol/L Carbon Dioxide 26 (22-32) mmol/L BUN 11 (7-17) mg/dL Creatinine 0.58 (0.52-1.04) mg/dL Estimated GFR > 60 (>60) mL/min BUN/Creatinine Ratio 19.0 (6-22) Glucose 103 H (70-100) mg/dL Calcium 8.6 (8.4-10.2) mg/dL Total Bilirubin 0.8 (0.2-1.3) mg/dL AST 22 (14-36) IU/L ALT 21 (<35) IU/L Alkaline Phosphatase 97 (38-126) U/L Total Protein 7.8 (6.3-8.2) g/dL Albumin 4.4 (3.5-5.0) g/dL Globulin 3.4 (1.7-4.1) g/dL Albumin/Globulin Ratio 1.3 (1.0-2.8) C. difficile Tox (PCR) Negative for c. diff (Negative) Discharge Plan Departure Patient Disposition: Home Clinical Impression: Vomiting and diarrhea Instructions: DI for Diarrhea and Traveler's Diarrhea -- Adult, DI for Vomiting -- Adult Activity Restrictions/Additional Instructions: *You have been diagnosed with diarrhea and vomiting secondary to possible infection with C difficile. I ordered antibiotics to treat your potential infection with C difficile. I suggest you take the antibiotic as ordered return to the emergency room if any emergent concerns arise. We are awaiting your labs regarding your urine and will contact you if they are positive. [ ] *What to do: *Please continue to take your regular medications as directed. [ ] New medication prescriptions sent to your pharmacy: [ ] [x] New medication written as a paper prescription [ ] No new medications given *Please follow up with your primary care provider in 2-3 days, call for an appointment. Let them know you were seen in the Emergency Department and that we ask that you be seen in follow up. We will electronically transmit a record of today's note if your PCP is in our system *If you do not have a primary care provider please contact the [facility] Resource line at [phone]. They will ask some questions about your medical history and help get you set up with a doctor in the community. *Return to Emergency Department if you should have any new, worsening or concerning symptoms, such as [fever greater than 101 F, shaking chills, worsening pain, persistent vomiting or other bothersome symptoms] Prescriptions: New vancomycin 125 mg capsule 125 mg PO QID Qty: 40 0RF vancomycin [Vancocin] 125 mg capsule 125 mg PO QID Qty: 40 0RF No Action Plus (calcium carb) 27 mg iron- 1 mg tablet 1 tab PO DAILY Referrals: ProviderOracio [Primary Care Provider] - Visit Report Forms: Patient Portal/API <Rut Conroy DO - Last Filed: 12/19/21 07:01> [facility] ED Attending Yvonne Attestation: I was immediately available in the department for consultation. Documentation has been reviewed. I agree with assessment and plan.
[2021-12-14 14:59] LABS: Clostridium Difficile Tox PCR Negative for C. diff (Negative)
[2021-12-14 15:30] LABS: Add Manual Diff / Slide Review NO; Basophils Absolute Auto 0 /uL (0-100); Basophils Percent Auto 0.4 % (0-2); Eosinophils Absolute Auto 0 /uL (0-450); Eosinophils Percent Auto 0.2 % (2-4); Hematocrit 41.4 % (36-46); Hemoglobin 13.9 g/dL (12.0-16.0); Lymphocytes Absolute Auto 400 /uL (1100-4500); Lymphocytes Percent Auto 5.2 % (25-40); Mean Corpuscular HGB Conc 33.5 % (30-36); Mean Corpuscular Hemoglobin 29.6 PG (26-34); Mean Corpuscular Volume 88.4 fL (80-100); Monocytes Absolute Auto 300 /uL (0-900); Monocytes Percent Auto 3.9 % (3-14); Neutrophils Absolute Auto 7300 /uL (1500-7000); Neutrophils Percent Auto 90.3 % (50-75); Platelet Count 217 X10^3/uL (150-400); Red Blood Cell Count 4.68 X10^6/uL (4.0-5.2); White Blood Cell Count 8.1 X10^3/uL (4.5-11.0)
[2021-12-14] MEDS: SODIUM CHLORIDE 0.9% 1,000 ML 1000 ML IV (15:32)
[2021-12-14 15:39] LABS: Alanine Aminotransferase 21 IU/L (<35); Albumin 4.4 g/dL (3.5-5.0); Albumin Globulin Ratio 1.3 (1.0-2.8); Alkaline Phosphatase 97 U/L (38-126); Aspartate Aminotransferase 22 IU/L (14-36); Bilirubin Total 0.8 mg/dL (0.2-1.3); Blood Urea Nitrogen 11 mg/dL (7-17); Calcium 8.6 mg/dL (8.4-10.2); Carbon Dioxide 26 mmol/L (22-32); Chloride 102 mmol/L (98-107); Estimated Glomerular Filt Rate > 60 mL/min (>60); Globulin 3.4 g/dL (1.7-4.1); Glucose 103 mg/dL (70-100); HEMOLYSIS < 15 (0-50); Potassium 3.6 mmol/L (3.4-5.1); Sodium 138 mmol/L (137-145); Total Protein 7.8 g/dL (6.3-8.2)
[2021-12-14 16:25] VITALS: BP 103/54; PULSE 66; RESP 16; O2SAT 99
== END 2021-12-14 16:26 | disposition home or self-care (01) ==
PROVIDERS: Emergency Medicine; Emergency Provider Physician Assistant
DX: R11.10 Vomiting, unspecified (principal); R19.7 Diarrhea, unspecified
CPT/HCPCS: 36415; 80053; 85025; 87493; 93005; 93010; 96360; 99284

== ENCOUNTER 2024-02-08 15:08 | Emergency (ER) | payer OTHER, SELFPAY ==
[2024-02-08] VITALS (18 sets, daily range): BP systolic 60–112; BP diastolic 40–65; PULSE 72–94; RESP 18–25; TEMP 37.3–37.4; O2SAT 96–100
--- NOTE | 2024-02-08 15:33 | DI.RAD.S_ITS ---
PROCEDURE: XR CHEST 1V INDICATIONS: suspected sepsis TECHNIQUE: One view of the chest was acquired. COMPARISON: None. FINDINGS: Surgical changes and devices: None. Lungs and pleura: Lungs are clear. No pleural effusions or pneumothorax. Mediastinum: Mediastinal contours appear normal. Heart size is normal. Bones and chest wall: No suspicious bony lesions. Overlying soft tissues appear unremarkable. IMPRESSION: No acute cardiopulmonary abnormality is seen. Dictated by: Elza Delacruz M.D. on 02/08/2024 at 14:54 Approved by: Elza Delacruz M.D. on 02/08/2024 at 14:55
--- NOTE | 2024-02-08 15:46 | EKG_ITS ---
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
[2024-02-08] MEDS: SODIUM CHLORIDE 0.9% 1,000 ML 1000 ML IV ×2 (16:01→17:36)
[2024-02-08 16:06] LABS: Add Manual Diff / Slide Review NO; Basophils Absolute Auto 100 /uL (0-100); Basophils Percent Auto 0.3 % (0-2); Eosinophils Absolute Auto 0 /uL (0-450); Eosinophils Percent Auto 0.1 % (2-4); Hemoglobin 13.6 g/dL (12.0-16.0); Lymphocytes Absolute Auto 700 /uL (1100-4500); Lymphocytes Percent Auto 3.7 % (25-40); Mean Corpuscular HGB Conc 33.2 % (30-36); Mean Corpuscular Hemoglobin 29.7 PG (26-34); Mean Corpuscular Volume 89.4 fL (80-100); Monocytes Absolute Auto 900 /uL (0-900); Monocytes Percent Auto 4.9 % (3-14); Neutrophils Absolute Auto 17600 /uL (1500-7000); Platelet Count 331 X10^3/uL (150-400); Red Blood Cell Count 4.58 X10^6/uL (4.0-5.2); Red Cell Distribution Width 13.2 % (11.6-14.8); White Blood Cell Count 19.3 X10^3/uL (4.5-11.0)
[2024-02-08 16:12] LABS: INR 1.1 (0.9-1.3)
--- NOTE | 2024-02-08 16:13 | ED_ITS ---
HPI - URI/Sore Throat <Rut Conroy DO - Last Filed: 02/09/24 07:02> General Chief Complaint: Dizziness Stated Complaint: neck and ear px Time Seen by Provider: 02/08/24 16:04 Source: patient and family Mode of arrival: Family Vehicle History of Present Illness HPI Narrative: Patient is a healthy 38 year-old female presenting today with near syncope. She reports that she has had sore throat ongoing for the last 3 days. She is unable to swallow fluids. Today she had cramping in her hands and feet. She was breathing quite fast time. She initially was brought here and noted to be hypotensive with a blood pressure in the 50s and 60s however once it was rechecked finally was above 100. She was not tachycardic. She has more pain on the right side of her throat it is radiating up into her ear. No cough no abdominal pain although it was crampy earlier no other symptoms. Related Data Home Medications Medication Instructions Recorded Confirmed vitamin with calcium 1 tab PO DAILY 07/23/21 01/01/22 no.72-iron 27 mg-folic acid 1 mg tablet ( Plus (calcium carbonate)) Previous Rx's Medication Instructions Recorded vancomycin 125 mg capsule 125 mg PO QID #40 caps 12/14/21 vancomycin 125 mg capsule 125 mg PO QID #40 caps 12/14/21 (Vancocin) amoxicillin 500 mg capsule 500 mg PO BID 10 days #20 caps 02/08/24 Allergies Allergy/AdvReac Type Severity Reaction Status Date / Time Latex, Natural Rubber Allergy Mild Rash Verified 01/01/22 15:07 Patient History <Rut Conroy DO - Last Filed: 02/09/24 07:02> Medical History Hyperlipidemia Low vitamin D level Surgical History Vaginal delivery (~09/2018) Family History Mother Diabetes mellitus Hyperlipidemia Grandfather Diabetes mellitus Hypertension Hyperlipidemia Stroke Grandmother Pneumonia Grandfather Cancer Grandmother Hypertension Social History marital status: number of children: 1 household members: spouse, family and children caregiver/support person: Yes housing: house pets and animals: Yes (Dog) education level: college occupational status: unemployed and previously employed current occupational exposures/hazards: No 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 seatbelt use: always water heater temp set < 120 deg: No working smoke detector in home: Yes fire extinguisher in home: Yes carbon monox detector in home: Yes firearms in home: No do you feel safe at home: Yes Smoking Status: Former smoker Smokeless tobacco user: other alcohol intake: former substance use type: does not use during the past year weight has: remained stable well-balanced diet: daily or most days daily servings fruits/ve-4 caffeine: Yes (Cut caffeine to 1-2 week, ) Type(s) of exercise: none Smoking Status: Former smoker Exam <Rut Conroy DO - Last Filed: 02/09/24 07:02> Initial Vital Signs Initial Vital Signs: Vital Signs Temperature 99.4 F 02/08/24 15:17 Pulse Rate 94 H 02/08/24 15:17 Respiratory Rate 20 02/08/24 15:17 Blood Pressure 60/40 L 02/08/24 15:17 Pulse Oximetry 99 02/08/24 15:17 Oxygen Delivery Method Room Air 02/08/24 15:17 GENERAL: Well-appearing, well-nourished and in no acute distress. HEENT: Head atraumatic,EOMI, pupils reactive, face symmetric, moist mucous membranes EARS: Tympanic membranes visualized, no erythema or bulging, no hemotympanum PHARYNX: Right side exudative tonsil no uvula swelling or deviation airway is patent CARDIOVASCULAR: Regular rate and rhythm without murmurs, rubs or gallops. RESPIRATORY: Breath sounds equal bilaterally, no wheezes rales or rhonchi. ABDOMEN: Soft, nontender. Normoactive bowel sounds all 4 quadrants. No guarding or rebound. EXTREMITIES: Normal range of motion, no clubbing or edema. Neurovascularly intact NEUROLOGICAL: Alert and oriented x4.Normal gait and speech. Cranial nerves II through XII grossly intact. SKIN: Warm, dry, no laceration, no petechiae, no rashes or lesions. <Rocky Carrillo DO - Last Filed: 02/08/24 19:09> Initial Vital Signs Initial Vital Signs: Vital Signs Temperature 99.4 F 02/08/24 15:17 Pulse Rate 94 H 02/08/24 15:17 Respiratory Rate 20 02/08/24 15:17 Blood Pressure 60/40 L 02/08/24 15:17 Pulse Oximetry 99 02/08/24 15:17 Oxygen Delivery Method Room Air 02/08/24 15:17 Course <Rut Conroy DO - Last Filed: 02/09/24 07:02> Orders Ordered: Discontinued Medications Dexamethasone (Dexamethasone 10 Mg/Ml Vial) 10 mg IV NOW ONE Stop: 02/08/24 16:14 Last Admin: 02/08/24 16:23 Dose: 10 mg Documented By: YAMILET Sodium Chloride (Normal Saline 0.9%) 1,000 mls @ 1,000 mls/hr IV BOLUS ONE Stop: 02/08/24 16:32 Last Infusion: 02/08/24 17:24 Dose: Infused Documented By: Admin: 02/08/24 16:01 Dose: 1,000 mls/hr Documented By: YAMILET Ampicillin Sodium/Sulbactam (Sodium 3 gm/ Sodium Chloride) 100 mls @ 200 mls/hr IV NOW ONE Stop: 02/08/24 17:05 Last Infusion: 02/08/24 18:13 Dose: Infused Documented By: Admin: 02/08/24 17:36 Dose: 200 mls/hr Documented By: RED Sodium Chloride (Normal Saline 0.9%) 1,000 mls @ 1,000 mls/hr IV BOLUS ONE Stop: 02/08/24 18:04 Last Infusion: 02/08/24 18:37 Dose: Infused Documented By: Admin: 02/08/24 17:36 Dose: 1,000 mls/hr Documented By: RED Ketorolac Tromethamine (Ketorolac 30 Mg/Ml Vial) 15 mg IV NOW ONE Stop: 02/08/24 16:14 Last Admin: 02/08/24 16:23 Dose: 15 mg Documented By: YAMILET Ondansetron HCl (Ondansetron 4 Mg/2 Ml Inj) 4 mg IV NOW PRN PRN Reason: Nausea And Vomiting Ondansetron HCl (Ondansetron 4 Mg Odt) 4 mg SL NOW PRN PRN Reason: Nausea And Vomiting Vital Signs Vital signs: Vital Signs - 8 hr 02/08/24 15:17 02/08/24 15:28 02/08/24 15:30 Temperature 99.4 F Pulse Rate 94 H 94 H 86 Respiratory Rate 20 23 Blood Pressure 60/40 L 112/55 L 104/51 L Pulse Oximetry 99 100 100 Oxygen Delivery Method Room Air 02/08/24 16:00 02/08/24 16:00 02/08/24 16:30 Temperature Pulse Rate 83 Respiratory Rate 19 Blood Pressure 104/56 L 89/54 L Pulse Oximetry 99 Oxygen Delivery Method 02/08/24 16:30 02/08/24 16:45 02/08/24 16:45 Temperature Pulse Rate 81 76 Respiratory Rate 24 Blood Pressure 82/44 L Pulse Oximetry 98 98 Oxygen Delivery Method Room Air 02/08/24 16:47 02/08/24 16:47 02/08/24 16:48 Temperature Pulse Rate 78 79 Respiratory Rate 21 25 H Blood Pressure 84/50 L Pulse Oximetry 98 99 Oxygen Delivery Method 02/08/24 16:48 02/08/24 17:00 02/08/24 17:00 Temperature Pulse Rate 77 Respiratory Rate 23 Blood Pressure 95/52 L 92/53 L Pulse Oximetry 96 Oxygen Delivery Method 02/08/24 17:15 02/08/24 17:15 02/08/24 17:30 Temperature Pulse Rate 73 72 Respiratory Rate 19 19 Blood Pressure 90/52 L Pulse Oximetry 98 96 Oxygen Delivery Method Room Air 02/08/24 17:30 02/08/24 17:45 02/08/24 17:45 Temperature Pulse Rate 76 Respiratory Rate Blood Pressure 91/55 L 93/52 L Pulse Oximetry 98 Oxygen Delivery Method 02/08/24 18:00 02/08/24 18:00 02/08/24 18:17 Temperature Pulse Rate 75 75 Respiratory Rate 18 20 Blood Pressure 105/53 L Pulse Oximetry 97 98 Oxygen Delivery Method 02/08/24 18:17 02/08/24 18:30 02/08/24 18:30 Temperature Pulse Rate 83 Respiratory Rate 23 Blood Pressure 93/46 L 99/54 L Pulse Oximetry 97 Oxygen Delivery Method Room Air <Rocky Carrillo DO - Last Filed: 02/08/24 19:09> Orders Ordered: Discontinued Medications Dexamethasone (Dexamethasone 10 Mg/Ml Vial) 10 mg IV NOW ONE Stop: 02/08/24 16:14 Last Admin: 02/08/24 16:23 Dose: 10 mg Documented By: YAMILET Sodium Chloride (Normal Saline 0.9%) 1,000 mls @ 1,000 mls/hr IV BOLUS ONE Stop: 02/08/24 16:32 Last Infusion: 02/08/24 17:24 Dose: Infused Documented By: Admin: 02/08/24 16:01 Dose: 1,000 mls/hr Documented By: YAMILET Ampicillin Sodium/Sulbactam (Sodium 3 gm/ Sodium Chloride) 100 mls @ 200 mls/hr IV NOW ONE Stop: 02/08/24 17:05 Last Infusion: 02/08/24 18:13 Dose: Infused Documented By: Admin: 02/08/24 17:36 Dose: 200 mls/hr Documented By: RED Sodium Chloride (Normal Saline 0.9%) 1,000 mls @ 1,000 mls/hr IV BOLUS ONE Stop: 02/08/24 18:04 Last Infusion: 02/08/24 18:37 Dose: Infused Documented By: Admin: 02/08/24 17:36 Dose: 1,000 mls/hr Documented By: RED Ketorolac Tromethamine (Ketorolac 30 Mg/Ml Vial) 15 mg IV NOW ONE Stop: 02/08/24 16:14 Last Admin: 02/08/24 16:23 Dose: 15 mg Documented By: YAMILET Ondansetron HCl (Ondansetron 4 Mg/2 Ml Inj) 4 mg IV NOW PRN PRN Reason: Nausea And Vomiting Ondansetron HCl (Ondansetron 4 Mg Odt) 4 mg SL NOW PRN PRN Reason: Nausea And Vomiting Vital Signs Vital signs: Vital Signs - 8 hr 02/08/24 15:17 02/08/24 15:28 02/08/24 15:30 Temperature 99.4 F Pulse Rate 94 H 94 H 86 Respiratory Rate 20 23 Blood Pressure 60/40 L 112/55 L 104/51 L Pulse Oximetry 99 100 100 Oxygen Delivery Method Room Air 02/08/24 16:00 02/08/24 16:00 02/08/24 16:30 Temperature Pulse Rate 83 Respiratory Rate 19 Blood Pressure 104/56 L 89/54 L Pulse Oximetry 99 Oxygen Delivery Method 02/08/24 16:30 02/08/24 16:45 02/08/24 16:45 Temperature Pulse Rate 81 76 Respiratory Rate 24 Blood Pressure 82/44 L Pulse Oximetry 98 98 Oxygen Delivery Method Room Air 02/08/24 16:47 02/08/24 16:47 02/08/24 16:48 Temperature Pulse Rate 78 79 Respiratory Rate 21 25 H Blood Pressure 84/50 L Pulse Oximetry 98 99 Oxygen Delivery Method 02/08/24 16:48 02/08/24 17:00 02/08/24 17:00 Temperature Pulse Rate 77 Respiratory Rate 23 Blood Pressure 95/52 L 92/53 L Pulse Oximetry 96 Oxygen Delivery Method 02/08/24 17:15 02/08/24 17:15 02/08/24 17:30 Temperature Pulse Rate 73 72 Respiratory Rate 19 19 Blood Pressure 90/52 L Pulse Oximetry 98 96 Oxygen Delivery Method Room Air 02/08/24 17:30 02/08/24 17:45 02/08/24 17:45 Temperature Pulse Rate 76 Respiratory Rate Blood Pressure 91/55 L 93/52 L Pulse Oximetry 98 Oxygen Delivery Method 02/08/24 18:00 02/08/24 18:00 02/08/24 18:17 Temperature Pulse Rate 75 75 Respiratory Rate 18 20 Blood Pressure 105/53 L Pulse Oximetry 97 98 Oxygen Delivery Method 02/08/24 18:17 02/08/24 18:30 02/08/24 18:30 Temperature Pulse Rate 83 Respiratory Rate 23 Blood Pressure 93/46 L 99/54 L Pulse Oximetry 97 Oxygen Delivery Method Room Air MDM - URI/Sore Throat <Rut Conroy, - Last Filed: 02/09/24 07:02> Lab Data 02/08/24 15:45 02/08/24 15:45 Labs: Lab Results 02/08/24 02/08/24 02/08/24 Range/Units 15:45 15:49 18:10 WBC 19.3 H (4.5-11.0) X10^3/uL RBC 4.58 (4.0-5.2) X10^6/uL Hgb 13.6 (12.0-16.0) g/dL Hct 41.0 (36-46) % MCV 89.4 (80-100) fL MCH 29.7 (26-34) PG MCHC 33.2 (30-36) % RDW 13.2 (11.6-14.8) % Plt Count 331 (150-400) X10^3/uL Neut % (Auto) 91.0 H (50-75) % Lymph % (Auto) 3.7 L (25-40) % Barbour % (Auto) 4.9 (3-14) % Eos % (Auto) 0.1 L (2-4) % Baso % (Auto) 0.3 (0-2) % Neut # (Auto) 94233 H (7642-6582) /uL Lymph # (Auto) 700 L (2762-8640) /uL Barbour # (Auto) 900 (0-900) /uL Eos # (Auto) 0 (0-450) /uL Baso # (Auto) 100 (0-100) /uL PT 13.0 H (9.4-12.5) SECONDS INR 1.1 (0.9-1.3) APTT 34 (25.1-36.5) SECONDS Sodium 133 L (137-145) mmol/L Potassium 3.6 (3.4-5.1) mmol/L Chloride 101 (98-107) mmol/L Carbon Dioxide 24 (22-32) mmol/L BUN 7 (7-17) mg/dL Creatinine 0.63 (0.52-1.04) mg/dL Estimated GFR > 60 (>60) mL/min BUN/Creatinine Ratio 11.1 (6-22) Glucose 138 H (70-100) mg/dL Lactate 1.3 (0.7-2.1) mmol/L Calcium 9.2 (8.4-10.2) mg/dL Total Bilirubin 0.7 (0.2-1.3) mg/dL AST 25 (14-36) IU/L ALT 17 (<35) IU/L Alkaline Phosphatase 91 (38-126) U/L Total Protein 8.5 H (6.3-8.2) g/dL Albumin 4.6 (3.5-5.0) g/dL Globulin 3.9 (1.7-4.1) g/dL Albumin/Globulin Ratio 1.2 (1.0-2.8) Lipase 26 (23-300) U/L Procalcitonin 0.081 (<0.5) ng/mL Urine RBC 30-100/hpf H (0-5/HPF) Urine WBC 5-10/hpf H (0-5/HPF) Ur Squamous Epith Cells None seen (0-5/HPF) Urine Bacteria None seen (None) Ur Culture Indicated? Specimen cultured Vol Urine Centrifuged 10ml (spun) Monoscreen Negative (Negative) Group A Strep (PCR) Negative (Negative) Point of Care Testing Test Results Negative Urine Dip Bedside Urine Glucose Negative Bedside Urine Bilirubin - Negative Bedside Urine Ketone +++ 80 Urine Specific Gilby 1.005 Bedside Urine Occult Blood +++ Bedside Urine pH 6.0 Bedside Urine Protein +/- 15 Bedside Urine Urobilinogen - Negative Bedside Urine Nitrite - Negative Bedside Urine Leukocytes +/- 15 Esterase Imaging Data Chest x-ray: Radiologist's Impression: PROCEDURE: XR CHEST 1V INDICATIONS: suspected sepsis TECHNIQUE: One view of the chest was acquired. COMPARISON: None. FINDINGS: Surgical changes and devices: None. Lungs and pleura: Lungs are clear. No pleural effusions or pneumothorax. Mediastinum: Mediastinal contours appear normal. Heart size is normal. Bones and chest wall: No suspicious bony lesions. Overlying soft tissues appear unremarkable. IMPRESSION: No acute cardiopulmonary abnormality is seen. Dictated by: Elza Delacruz M.D. on 02/08/2024 at 14:54 ECG Data Attestation: I personally reviewed and interpreted this ECG as follows: Prior ECG tracings: available for review Interpretation: Normal sinus rhythm rate 81 PA interval 168 QRS [address] changes or T- wave inversions similar to prior MDM Narrative Medical decision making narrative: MDM CC: Sore throat Complicating co-morbidities: Healthy female Medical records reviewed: Differential considered: Upper respiratory infection, strep, peritonsillar abscess retropharyngeal abscess mono Exam documented above, pertinent findings include: Right peritonsillar erythema and exudate no uvula swelling or deviation no airway compromise swallowing and managing her own secretions Lab Test results independently reviewed as above. Pertinent findings: Rapid strep negative Barbour negative WBC 19.3 with left shift, hemoglobin 13.6 hematocrit 410 platelets 331 Sodium 133 potassium 3.6 chloride 101 CO2 24 BUN 7 creatinine 0.6 Lactate 1.3, procalcitonin 0.081 Independently reviewed EKG as above no ischemia Imaging studies independently reviewed: Chest x-ray no acute process Consultations: None Treatments: IV fluid 2 L, Unasyn dexamethasone and Toradol Re-evaluations: After dexamethasone and Toradol patient is able to speak. She continues to manage her own secretions but has a very painful swallowing. Reports that she has not been swallowing. Discussion: Patient 30-year-old female presenting today with sore throat ongoing for last 2- 3 days. She does have quite painful sore throat reports that she has not able to swallow. There is no evidence of retropharyngeal or peritonsillar abscess. Her initial rapid strep is negative although with exudate and leukocytosis of 19 I have strong suspicion for strep. Her mono test is negative. She is empirically given Unasyn. She initially was very hypotensive in triage however once brought back a blood pressure improved however blood pressure is soft sometimes in the 90s. She seems to be asymptomatic. She has a normal lactate of 1.2 concern for severe sepsis. Possible mild dehydration from not eating or drinking for 3 days. Creatinine is within normal limits. Patient signed out to Dr. Jaquez <Rocky Carrillo DO - Last Filed: 02/08/24 19:09> Lab Data Attestation: I reviewed the patient's lab results. Labs: Lab Results 02/08/24 02/08/24 02/08/24 Range/Units 15:45 15:49 18:10 WBC 19.3 H (4.5-11.0) X10^3/uL RBC 4.58 (4.0-5.2) X10^6/uL Hgb 13.6 (12.0-16.0) g/dL Hct 41.0 (36-46) % MCV 89.4 (80-100) fL MCH 29.7 (26-34) PG MCHC 33.2 (30-36) % RDW 13.2 (11.6-14.8) % Plt Count 331 (150-400) X10^3/uL Neut % (Auto) 91.0 H (50-75) % Lymph % (Auto) 3.7 L (25-40) % Barbour % (Auto) 4.9 (3-14) % Eos % (Auto) 0.1 L (2-4) % Baso % (Auto) 0.3 (0-2) % Neut # (Auto) 73060 H (3495-4198) /uL Lymph # (Auto) 700 L (4655-7001) /uL Barbour # (Auto) 900 (0-900) /uL Eos # (Auto) 0 (0-450) /uL Baso # (Auto) 100 (0-100) /uL PT 13.0 H (9.4-12.5) SECONDS INR 1.1 (0.9-1.3) APTT 34 (25.1-36.5) SECONDS Sodium 133 L (137-145) mmol/L Potassium 3.6 (3.4-5.1) mmol/L Chloride 101 (98-107) mmol/L Carbon Dioxide 24 (22-32) mmol/L BUN 7 (7-17) mg/dL Creatinine 0.63 (0.52-1.04) mg/dL Estimated GFR > 60 (>60) mL/min BUN/Creatinine Ratio 11.1 (6-22) Glucose 138 H (70-100) mg/dL Lactate 1.3 (0.7-2.1) mmol/L Calcium 9.2 (8.4-10.2) mg/dL Total Bilirubin 0.7 (0.2-1.3) mg/dL AST 25 (14-36) IU/L ALT 17 (<35) IU/L Alkaline Phosphatase 91 (38-126) U/L Total Protein 8.5 H (6.3-8.2) g/dL Albumin 4.6 (3.5-5.0) g/dL Globulin 3.9 (1.7-4.1) g/dL Albumin/Globulin Ratio 1.2 (1.0-2.8) Lipase 26 (23-300) U/L Procalcitonin 0.081 (<0.5) ng/mL Urine RBC 30-100/hpf H (0-5/HPF) Urine WBC 5-10/hpf H (0-5/HPF) Ur Squamous Epith Cells None seen (0-5/HPF) Urine Bacteria None seen (None) Ur Culture Indicated? Specimen cultured Vol Urine Centrifuged 10ml (spun) Monoscreen Negative (Negative) Group A Strep (PCR) Negative (Negative) Point of Care Testing Test Results Negative Urine Dip Bedside Urine Glucose Negative Bedside Urine Bilirubin - Negative Bedside Urine Ketone +++ 80 Urine Specific Gilby 1.005 Bedside Urine Occult Blood +++ Bedside Urine pH 6.0 Bedside Urine Protein +/- 15 Bedside Urine Urobilinogen - Negative Bedside Urine Nitrite - Negative Bedside Urine Leukocytes +/- 15 Esterase MDM Narrative Medical decision making narrative: MDM CC: Sore throat Complicating co-morbidities: Healthy female Medical records reviewed: Differential considered: Upper respiratory infection, strep, peritonsillar abscess retropharyngeal abscess mono Exam documented above, pertinent findings include: Right peritonsillar erythema and exudate no uvula swelling or deviation no airway compromise swallowing and managing her own secretions Lab Test results independently reviewed as above. Pertinent findings: Rapid strep negative Barbour negative WBC 19.3 with left shift, hemoglobin 13.6 hematocrit 410 platelets 331 Sodium 133 potassium 3.6 chloride 101 CO2 24 BUN 7 creatinine 0.6 Lactate 1.3, procalcitonin 0.081 Independently reviewed EKG as above no ischemia Imaging studies independently reviewed: Chest x-ray no acute process Consultations: None Treatments: IV fluid 2 L, Unasyn dexamethasone and Toradol Re-evaluations: After dexamethasone and Toradol patient is able to speak. She continues to manage her own secretions but has a very painful swallowing. Reports that she has not been swallowing. Discussion: Patient 30-year-old female presenting today with sore throat ongoing for last 2- 3 days. She does have quite painful sore throat reports that she has not able to swallow. There is no evidence of retropharyngeal or peritonsillar abscess. Her initial rapid strep is negative although with exudate and leukocytosis of 19 I have strong suspicion for strep. Her mono test is negative. She is empirically given Unasyn. She initially was very hypotensive in triage however once brought back a blood pressure improved however blood pressure is soft sometimes in the 90s. She seems to be asymptomatic. She has a normal lactate of 1.2 concern for severe sepsis. Possible mild dehydration from not eating or drinking for 3 days. Creatinine is within normal limits. Patient signed out to Dr. Lorena carrillo: Received turned over. Review patient's history and physical exam. Patient does have a negative rapid strep however her presenting symptoms are most consistent with strep throat. Then will be to treat her clinically. She was tolerating oral intake. States she feels better after medications provided here in the emergency department. We discussed treatment options to include IM Bicillin versus antibiotics by mouth and she chose the antibiotics by mouth. She was given return precautions and follow-up instructions. She expressed understanding and agreement with plan. Discharge Plan Departure Patient Disposition: Home Clinical Impression: Pharyngitis Instructions: Sore Throat Activity Restrictions/Additional Instructions: You can take Tylenol and/or ibuprofen for any fevers or discomfort. Be sure that you were increasing your fluid intake. Take the antibiotics as directed. Return to the emergency department for new or worsening symptoms. Prescriptions: New amoxicillin 500 mg capsule 500 mg PO BID 10 Days Qty: 20 0RF No Action vancomycin 125 mg capsule 125 mg PO QID Qty: 40 0RF vancomycin [Vancocin] 125 mg capsule 125 mg PO QID Qty: 40 0RF Plus (calcium carb) 27 mg iron- 1 mg tablet 1 tab PO DAILY Referrals: [facility] [Primary Care Provider] - Stand Alone Forms: Patient Portal/API/Survey
[2024-02-08 16:14] LABS: Alanine Aminotransferase 17 IU/L (<35); Albumin 4.6 g/dL (3.5-5.0); Albumin Globulin Ratio 1.2 (1.0-2.8); Alkaline Phosphatase 91 U/L (38-126); Aspartate Aminotransferase 25 IU/L (14-36); BUN Creatinine Ratio 11.1 (6-22); Bilirubin Total 0.7 mg/dL (0.2-1.3); Blood Urea Nitrogen 7 mg/dL (7-17); Calcium 9.2 mg/dL (8.4-10.2); Carbon Dioxide 24 mmol/L (22-32); Chloride 101 mmol/L (98-107); Estimated Glomerular Filt Rate > 60 mL/min (>60); Globulin 3.9 g/dL (1.7-4.1); Glucose 138 mg/dL (70-100); HEMOLYSIS < 15 (0-50); Lactate (Lactic Acid) 1.3 mmol/L (0.7-2.1); Lipase 26 U/L (23-300); PTT Partial Thromboplastin Tim 34 SECONDS (25.1-36.5); Potassium 3.6 mmol/L (3.4-5.1); Sodium 133 mmol/L (137-145); Total Protein 8.5 g/dL (6.3-8.2)
[2024-02-08] MEDS: KETOROLAC 30 MG/ML VIAL 15 MG IV (16:23)
[2024-02-08] MEDS: DEXAMETHASONE 10 MG/ML VIAL IV (16:23)
--- NOTE | 2024-02-08 16:29 | PC.NURSE ---
Patient here in department for ear pain and throat pain thats been going on for 3 days, subjective fevers at home. Patient unable to speak, using her phone to communicate. BP in triage as low as 60's systolic, in room hovering around 100 systolic. Provider is aware NIO for sepsis put in. bolus of fluids started
[2024-02-08 16:31] LABS: Procalcitonin 0.081 ng/mL (<0.5)
[2024-02-08 16:46] LABS: Monotest Negative (Negative)
[2024-02-08 16:48] LABS: Strep Grp A by PCR Rapid Negative (Negative)
[2024-02-08] MEDS: AMPICILLIN/SULBACTAM 3 GM 3 GM in SODIUM CHLORIDE 0.9% 100 ML IV (17:36)
[2024-02-08 18:41] LABS: Bacteria Urine None Seen; RBC Urine 30-100/HPF (0-5/HPF); Squamous Epithelial Cell Urine None Seen (0-5/HPF); Urine Volume 10mL (spun); WBC Urine 5-10/HPF (0-5/HPF)
[2024-02-08 18:42] LABS: Culture Indicated Urine Specimen Cultured
--- NOTE | 2024-02-08 18:50 | PC.NURSE ---
Patient reports that she feels much better is able to speak without a lot of pain, pain is 5/10 which patient reports that the pain is manageable and does not want anymore pain medication. Ambulated to the bathroom with no dizziness and blood pressure has remained normotensive
== END 2024-02-08 19:21 | disposition home or self-care (01) ==
PROVIDERS: Emergency Medicine; Emergency Provider Emergency Medicine
DX: J02.9 Acute pharyngitis, unspecified (principal); R55 Syncope and collapse; Z87.891 Personal history of nicotine dependence
CPT/HCPCS: 36415; 71045; 80053; 81003; 81015; 81025; 83605; 83690; 84145; 85025; 85610; 85730; 86318; 87040; 87070; 87086; 87651; 93005; 96361; 96365; 96375; 99284; J0295; J1100; J1885